=== PATIENT | male | born 1965 | race Caucasian/White ===

== ENCOUNTER 2018-09-01 08:04 | Inpatient (IN) ==
--- NOTE | 2018-08-20 11:55 | Anesthesiology Consultation ---
Date of Service August 20, 2018 Assessment & Plan (1) Encounter for pre-operative examination: - Egg reaction "as a child"-- skin test negative per patient* Chart Review Chart Review: Acceptable Risk for Surgery and Patient seen in Pre Admission Testing Teaching & Discussion Pre-Anesthesia Teaching/Discussion Notes: Instructed NPO after midnight before surgery,except medications with 15 cc of water. Medication instructions provided according to the PAT guidelines. History Surgery Operation Date: 09/01/18 10:05 Proposed Procedures p L5-S1 Decompression and Fusion - Sawyer Heranndez DO Height/Weight Height: 5 ft 10 in Weight: 95.8 kg Allergies Allergy/AdvReac Type Severity Reaction Status Date / Time duloxetine [From Cymbalta] Allergy Intermediate THROAT Verified 08/10/18 13:38 CONSTRICTION pregabalin [From Lyrica] Allergy Intermediate THROAT Verified 08/10/18 13:38 CONSTRICTION sumatriptan [From Imitrex] Allergy Intermediate THROAT Verified 08/10/18 13:38 CONSTRICTION walnut Allergy Intermediate THROAT Verified 08/10/18 13:40 FEELS FUZZY pistachio nut Allergy Mild THROAT Verified 08/10/18 13:40 FEELS FUZZY primidone Allergy Mild VERTIGO Verified 08/10/18 13:38 egg Allergy Unknown SKIN TEST Verified 08/20/18 11:56 NEGATIVE ON MOST RECENT TESTING PER PATIENT gabapentin AdvReac Intermediate Seizure Verified 08/10/18 13:52 Medications Home Medications Medication Instructions Recorded Confirmed Last Taken aspirin 325 mg PO QAM 08/10/18 08/10/18 Unknown atorvastatin 10 mg PO PM 08/10/18 08/10/18 Unknown loratadine [Claritin] 10 mg PO QPM 08/10/18 08/10/18 Unknown propranolol 10 mg PO BID 08/10/18 08/10/18 Unknown Past Medical History Medical History Fibromyalgia History of seizure X2 (2010, 2011)- ?MEDICATION INDUCED (?GABAPENTIN)- NO ISSUES SINCE GABAPENTIN DISCONTINUATION History of stroke 2011= NO RESIDUAL EFFECTS Hyperlipidemia Hypertension Migraine Obesity Spinal stenosis Past Surgical History Surgical History History of carpal tunnel release B/L Hx of vasectomy Past Anesthesia History No Hx of Anesthesia Complications and No Family Hx of Anesthesia Complications History of PONV No Motion Sickness Screening History of Motion Sickness: Yes (RARE) Social History Smoking Status: Never smoker Do You Dip or Chew Tobacco: No Hx Alcohol Use: Yes Alcohol type: beer alcohol intake frequency: a few times a month Hx Substance Use: No Exercise / Class Metabolic Activity II 4-5 Yardwork/Stairs/Walk up cross junction Review of Systems Patient reports LBP with B/L LE neuropathy. Patient denies chest pain, shortness of breath, dyspnea on exertion, cough, wheezing, palpitations. Physical Exam Vital Signs VITALS BP 115/79 P 89 TEMP 97.7 SP02 93%RA RESP 18 PHYSICAL Full neck and c-spine range of motion. Full TMJ range of motion. TMD 3 finger breaths Mallampati Score 2 Dentition: intact, crown on molar Lungs: clear throughout to auscultation Cardiac: regular rate and rhythm, no murmurs noted Spine: normal Carotid arteries: negative bruit Extremities: no edema Trimmed burgos Testing Electrocardiogram Date: 08/20/18 Findings: + NSR @ (83) Chest X-Ray Date: 05/21/18 Findings: + NAD Laboratory Results 08/20/18 11:53 08/20/18 11:53 Blood Type A Positive 08/20/18 11:53 Antibody Screen NEGATIVE 08/20/18 11:53 PT 10.1 Seconds (9.0-12.0) 08/20/18 11:53 INR 1.0 (0.9-1.1) 08/20/18 11:53 APTT 25.4 Seconds (21.0-31.0) 08/20/18 11:53 Urine Color Yellow 08/20/18 11:53 Urine Appearance Clear (Clear) 08/20/18 11:53 Urine pH 5.0 (4.5-7.5) 08/20/18 11:53 Ur Specific [place] 1.013 (1.000-1.030) 08/20/18 11:53 Urine Protein Negative (Negative) 08/20/18 11:53 Urine Glucose (UA) Negative (Negative) 08/20/18 11:53 Urine Ketones 1+ (Negative) H 08/20/18 11:53 Urine Nitrite Negative (Negative) 08/20/18 11:53 Ur Leukocyte Esterase Negative (Negative) 08/20/18 11:53
--- NOTE | 2018-08-20 12:06 | PAT Medication Instructions ---
Medication Instructions Date of Service August 20, 2018 Home Medications aspirin 325 mg PO QAM atorvastatin 10 mg PO PM loratadine [Claritin] 10 mg PO QPM propranolol 10 mg PO BID ASK your prescriber and surgeon aspirin 325 mg PO QAM Take morning of surgery With a small sip of water, OTHERWISE NOTHING TO EAT OR DRINK AFTER MIDNIGHT: propranolol 10 mg PO BID Take evening before surgery atorvastatin 10 mg PO PM loratadine [Claritin] 10 mg PO QPM propranolol 10 mg PO BID Other Notes If you have any questions please call us at [phone] or [phone] or [phone] or [phone]
[2018-08-20 12:42] LABS: Appearance Urine Clear (Clear); Basophils # (auto) 0.03 K/uL (0-0.2); Basophils % (auto) 0.6 %; Bilirubin Urine Negative (Negative); Blood Urine Negative (Negative); Color Urine Yellow; Eosinophils # (auto) 0.14 K/uL (0-0.5); Eosinophils % (auto) 2.8 %; Glucose Urine UA Negative (Negative); Hematocrit (blood only) 41.4 % (42-52); Hemoglobin 15.2 g/dL (14.0-18.0); Immature Granulocytes # (auto) 0.02 K/uL (0.00-0.02); Immature Granulocytes % (auto) 0.4 %; Ketones Urine 1+ (Negative); Leukocyte Esterase Urine Negative (Negative); Lymphocytes # (auto) 2.05 K/uL (1.2-3.4); Lymphocytes % (auto) 40.5 %; Mean Corpuscular Hgb Conc 36.7 g/dL (32-36); Mean Corpuscular Volume 89.2 fL (80-100); Mean Platelet Volume 9.7 fL (7.4-10.4); Monocytes # (auto) 0.36 K/uL (0.11-0.59); Monocytes % (auto) 7.1 %; Neutrophils # (auto) 2.46 K/uL (1.4-6.5); Neutrophils % (auto) 48.6 %; Nitrite Urine Negative (Negative); Platelet Count 251 K/uL (130-400); Protein Urine Negative (Negative); RDW Coefficient of Variation 13.1 % (11.5-14.5); RDW Standard Deviation 42.2 fL (36.4-46.3); Red Blood Count 4.64 M/uL (4.7-6.1); Specific Gravity Urine 1.013 (1.000-1.030); Urobilinogen Urine Negative (Negative); White Blood Count 5.06 K/uL (4.8-10.8)
[2018-08-20 12:50] LABS: BUN Creatinine Ratio 14.3 (10-20); Creatinine Clr Calc Pharmacy 92.3 ml/min; Est GFR (African American) 92.2; Est GFR (Non-African American) 79.5; Potassium 4.2 mmol/L (3.5-5.1)
[2018-08-20 12:52] LABS: Partial Thromboplastin Ratio 0.9; Partial Thromboplastin Time 25.4 Seconds (21.0-31.0); Prothrombin Time 10.1 Seconds (9.0-12.0)
[~2018-09-01 08:04] MED LIST: ACETAMINOPHEN 500 MG TAB PO SCH; CEFAZOLIN 2000MG 2,000 MG/15 ML SYR IV SCH; CeleBREX 200 MG CAP PO SCH; GABAPENTIN 300 MG x 2 PO SCH; LR 15ML/HR IV SCH; ROPIVACAINE 0.5% HCL/PF 150 MG, BUPIVACAINE 0.5% MPF 30 ML, EPINEPHrine 30MG/30ML (OR U... INFIL SCH
[2018-09-01] MEDS ORDERED: LABETALOL HCL IV 5 MG/ML 20ML IV PRN (09:38)
[2018-09-01] MEDS ORDERED: ONDANSETRON INJ 2 MG/ML 2 ML VIAL IV PRN ×2 (09:38→13:51)
[2018-09-01] MEDS ORDERED: HYDROmorphone INJ 1 MG/ML SYRINGE IV PRN (09:38)
[2018-09-01] MEDS ORDERED: ATROPINE SULFATE 0.1 MG/ML 10ML SYR IV PRN (09:38)
--- NOTE | 2018-09-01 10:26 | History & Physical Bridge Note ---
Date of Service September 01, 2018 History & Physical Bridge Note I have examined the patient, reviewed the History & Physical and in the interval since the performance of the History & Physical I have noted the following changes of clinical significance: no changes noted
--- NOTE | 2018-09-01 10:27 | History & Physical Report ---
Date of Service September 01, 2018 Assessment & Plan (1) Spinal stenosis, lumbar region with neurogenic claudication: L5-S1 decompression and fusion Present on Admission?: Yes History of Present Illness Chief Complaint: Back and bilateral leg pain Primary Care Provider: Irena Beck This is a 53-year-old male who presents with chronic back and bilateral leg pain. After failing extensive course of nonoperative care is here for surgical intervention. Allergies Allergy/AdvReac Type Severity Reaction Status Date / Time duloxetine [From Cymbalta] Allergy Intermediate THROAT Verified 08/10/18 13:38 CONSTRICTION pregabalin [From Lyrica] Allergy Intermediate THROAT Verified 08/10/18 13:38 CONSTRICTION sumatriptan [From Imitrex] Allergy Intermediate THROAT Verified 08/10/18 13:38 CONSTRICTION walnut Allergy Intermediate THROAT Verified 08/10/18 13:40 FEELS FUZZY pistachio nut Allergy Mild THROAT Verified 08/10/18 13:40 FEELS FUZZY primidone Allergy Mild VERTIGO Verified 08/10/18 13:38 egg Allergy Unknown SKIN TEST Verified 09/01/18 08:29 NEGATIVE ON MOST RECENT TESTING PER PATIENT gabapentin AdvReac Intermediate Seizure Verified 08/10/18 13:52 Home Medications Home Medications Medication Instructions Recorded Confirmed Type aspirin 325 mg PO QAM 08/10/18 09/01/18 History atorvastatin 10 mg PO PM 08/10/18 09/01/18 History loratadine [Claritin] 10 mg PO QPM 08/10/18 09/01/18 History propranolol 10 mg PO BID 08/10/18 09/01/18 History Vitamin B-12 1 tab PO DAILY 09/01/18 09/01/18 History Past Med/Surg History Social History Preferred Language: Guamanian Communication Ability: Effective Beliefs That Will Affect Care: None Current Living Situation: Spouse Other Information That Helps Us Care for You: No Feels Safe at Home: Yes Safety Concerns: Feels Safe At This Time Smoking Status: Never smoker Do You Dip or Chew Tobacco: No Hx Alcohol Use: Yes Alcohol type: beer Hx Substance Use: No Physical Exam Vital Signs (Past 24 Hours): Last Vital Signs Temp 36.6 C 09/01/18 08:32 Pulse 86 09/01/18 08:32 Resp 18 09/01/18 08:32 BP 127/89 09/01/18 08:32 Pulse Ox 96 09/01/18 08:32
[2018-09-01] MEDS ORDERED: BACITRACIN INJ 50,000 UNIT VIAL ONE (10:33)
[2018-09-01] MEDS ORDERED: BUPIVACAINE/EPINEPHRINE 0.5% MPF 1:200,000 30 ML VIAL ONE (10:33)
[2018-09-01] MEDS ORDERED: ONDANSETRON INJ 2 MG/ML 2 ML VIAL ONE (10:34)
[2018-09-01] MEDS ORDERED: LIDOCAINE HCL 2% 2 ML VIAL/AMP(20MG/ML) INFIL ONE (10:34)
[2018-09-01] MEDS ORDERED: HYDROmorphone INJ 2 MG/ML SYR/VIAL ONE ×2 (10:34→11:18)
[2018-09-01] MEDS ORDERED: MIDAZOLAM HCL 1 MG/ML 2ML VIAL ONE (10:34)
[2018-09-01] MEDS ORDERED: PROPOFOL IV EMULSION 10 MG/ML 20 ML VIAL IV ONE (10:34)
[2018-09-01] MEDS ORDERED: ROCURONIUM BROMIDE 10 MG/ML 5 ML VIAL ONE (10:34)
[2018-09-01] MEDS ORDERED: DEXAMETHASONE SOD INJ 4 MG/ML VIAL ONE ×2 (10:34→11:10)
[2018-09-01] MEDS ORDERED: FLOSEAL HEMOSTATIC MATRIX 10ML TOP ONE (11:28)
[2018-09-01] MEDS ORDERED: NEOSTIGMINE METHYLSULFATE 1 MG/ML 10ML VIAL ONE (12:02)
[2018-09-01] MEDS ORDERED: GLYCOPYRROLATE 0.2 MG/ML VIAL ONE (12:02)
--- NOTE | 2018-09-01 12:43 | Fluoroscopy Report ---
FL lumbar spine 2-3V HISTORY: 53 years-old Male L5-S1 DECOMPRESSION AND FUSION chronic low back pain COMPARISON: None available TECHNIQUE: 4 spot fluoroscopic images of the lumbar spine were obtained utilizing 27.6 seconds of flu oroscopy time FINDINGS: Laminectomy changes with discectomy and posterior interbody brody and screw fusion at L5-S1. There is s everal millimeters anterolisthesis L5 on S1. Alignment at L4-L5 appears satisfactory on these images. IMPRESSION: Fluoroscopic assistance as above. Please see operative report for further details. The above report was generated using voice recognition software. It may contain grammatical, syntax o r spelling errors. Electronically signed by: Everett Ling M.D. 09/01/2018 12:42 PM
--- NOTE | 2018-09-01 12:48 | Operative Report ---
Post Operative Report Pre & Post Diagnosis Operation Date: 09/01/18 10:05 Pre-Op Diagnosis: Spinal stenosis, lumbar region with neurogenic claudication Post-Op Diagnosis: Spinal stenosis, lumbar region with neurogenic claudication Procedure Operation Date: 09/01/18 10:05 Actual Procedures #1 lumbar decompression bilateral medial facetectomies foraminotomies L4-5 L5- S1. #2 posterior spinal fusion L5-S1 per #3 placement posterior instrumentation L5-S1 per #4 interbody fusion L5-S1 per #5 placement of titanium 10 x 26 mm cage L5-S1 per #6 placement of local autograft in the posterior lateral gutters per #7 placement Feese collagen sponge, master graft the posterior gutters ostial amp and interbody space. Surgeon Sawyer Hernandez DO Retail Link Analyst None Estimated Blood Loss 250 Findings Consistent with Post-Op Diagnosis Specimens None Indications This is a 53-year-old male who presents with grade 1+ spondylolisthesis L5-S1. After failing extensive course of nonoperative care he is here for surgical intervention. Description of Procedure Patient was met with preoperatively case discussed all questions addressed. After informed consent obtained patient was taken to the operative suite underwent intubation placed in prone position on the Wade table on top the Rodrigo frame. All bony prominences well-padded eyes inspected to ensure no external pressure placed upon the peer at this point the lumbar spine was prepped and draped in normal sterile fashion. Sharp dissection with the assistance of Bovie cautery was performed down to and exposing the lamina and transverse processes of L5 and sacral ala bilaterally. From a caudal cephalad fashion complete laminectomy of L5 was performed partial laminectomy of L4 was performed and bilateral medial facetectomies and 4551 including foraminotomies to address severe spinal stenosis and neural compression performed. Pedicle screws were placed in L4 and S1 bilaterally with assistance of fluoroscopy and process brody placed by way of a transforaminal approach on the right complete discectomy was performed in plate coated to subcortical bleeding bone and a 10 x 26 mm titanium cage filled with osteo-amp bone graft tapped in position. Rods were then locked in final position bilaterally. Transverse processes of L5 and sacral ala bur to subcortical bleeding bone. Infuse collagen sponge mass graft local autograft placed in the posterior gutters. 15 round MARIE drain inserted. Incision was then closed with 1 Vicryl in the fascia 2-0 Vicryl subcutaneous and 4-0 Monocryl for final skin closure. Steri-Strip sterile dressings placed. Patient will continue to PACU in a stable condition. I attest to the content of the Intraoperative Record and any orders documented therein. Any exceptions are noted below.
[2018-09-01] MEDS ORDERED: TRAMADOL HCL 50 MG TABLET PO PRN (13:51)
[2018-09-01] MEDS ORDERED: HYDROmorphone INJ 0.5 MG/0.5 ML SYR IV PRN (13:51)
[2018-09-01] MEDS ORDERED: ACETAMINOPHEN 1,000 MG/100 ML VIAL IV PRN (13:51)
[2018-09-01] MEDS ORDERED: PROMETHAZINE HCL 12.5 MG in SODIUM CHLORIDE 0.9% 50 ML IV PRN (13:51)
[2018-09-01] MEDS ORDERED: OXYCODONE HCL IR 5 MG TAB (IMMEDIATE RELEASE) PO PRN (13:51)
[2018-09-01] MEDS ORDERED: LORazepam 0.5 MG TAB PO PRN (13:51)
[2018-09-01] MEDS ORDERED: MAGNESIUM HYDROXIDE SUSP 30 ML UDC PO PRN (13:51)
[2018-09-01] MEDS ORDERED: BISACODYL 10 MG SUPP PR PRN (13:51)
[2018-09-01] MEDS ORDERED: SOD PHOSPHATE/SOD BIPHOSPHATE ENEMA 132 ML BTL PR PRN (13:51)
[2018-09-01] MEDS ORDERED: ALUMINUM/MAGNESIUM SUSP 30 ML UDC PO PRN (13:51)
[2018-09-01] MEDS ORDERED: METOCLOPRAMIDE HCL INJ 5 MG/ML 2 ML VIAL IV PRN (13:51)
[2018-09-01] MEDS ORDERED: ACETAMINOPHEN 500 MG TAB PO PRN (13:51)
[2018-09-01] MEDS ORDERED: ONDANSETRON 4 MG TAB PO PRN (13:51)
[2018-09-01] MEDS ORDERED: FAMOTIDINE 20 MG TAB PO PRN (13:51)
[2018-09-01] MEDS ORDERED: DO NOT ADMINISTER PNEUMOCOCCAL VACCINE PRN (13:51)
[2018-09-01] MEDS ORDERED: LORazepam 0.5 MG/1 ML VIAL IV PRN (13:51)
[2018-09-01] MEDS ORDERED: DO NOT ADMINISTER FLU VACCINE PRN (13:51)
--- NOTE | 2018-09-01 14:21 | Anesthesiology Progress Note ---
Date of Service September 01, 2018 Anesthesia Post Procedure Vital Signs Vital Signs: Temp Pulse Pulse Resp BP BP Pulse Ox 09/01/18 13:55 36.6 C 84 18 123/75 98 09/01/18 13:45 76 20 100/64 96 09/01/18 13:40 84 15 105/69 96 09/01/18 13:35 85 20 119/77 97 09/01/18 13:30 90 17 117/75 97 09/01/18 13:28 36.6 C 86 20 117/75 97 09/01/18 13:25 74 12 97 09/01/18 13:20 79 19 114/73 96 09/01/18 13:15 88 18 121/70 95 09/01/18 13:10 86 17 99/72 L 91 09/01/18 13:06 93 H 11 L 105/67 91 09/01/18 13:05 90 14 91 09/01/18 13:02 88 14 97 09/01/18 13:00 88 13 115/73 97 09/01/18 12:59 36.1 C L 82 14 120/70 97 09/01/18 12:58 97 09/01/18 08:32 36.6 C 86 18 127/89 96 Pain Intensity Bilateral Leg: Pain Intensity: 0 Notes Mental Status: alert / awake / arousable Patient Amnestic to Procedure: Yes Nausea / Vomiting: adequately controlled Pain: adequately controlled Airway Patency, RR, SpO2: stable & adequate BP & HR: stable & adequate Hydration State: stable & adequate Anesthetic Complications: no major complications apparent
[2018-09-01] MEDS: LACTATED RINGER'S 1,000 ML IV SCH ×2 (14:32→21:24)
[2018-09-01] MEDS: KETOROLAC 30 MG/ML VIAL IV SCH ×2 (15:27→21:27)
[2018-09-01] MEDS: CEFAZOLIN 2000MG 2,000 MG/15 ML SYR IV SCH (18:18)
[2018-09-01] MEDS: ATORVASTATIN 10 MG TAB PO SCH (20:49)
[2018-09-01] MEDS: PROPRANOLOL HCL 10 MG TAB PO SCH (20:49)
[2018-09-01] MEDS: LORATADINE 10 MG TAB PO SCH (20:49)
[2018-09-01] MEDS: DOCUSATE SODIUM/SENNA 50/8.6MG TAB PO SCH (20:50)
[2018-09-02] MEDS: CEFAZOLIN 2000MG 2,000 MG/15 ML SYR IV SCH (01:30)
[2018-09-02] MEDS: KETOROLAC 30 MG/ML VIAL IV SCH ×2 (04:03→09:36)
[2018-09-02] MEDS: LACTATED RINGER'S 1,000 ML IV SCH (04:08)
[2018-09-02] MEDS: POLYETHYLENE (MIRALAX) 17 GM PACK PO SCH ×3 (05:43→18:08)
[2018-09-02 06:10] LABS: Basophils # (auto) 0.01 K/uL (0-0.2); Basophils % (auto) 0.1 %; Hematocrit (blood only) 35.1 % (42-52); Hemoglobin 12.7 g/dL (14.0-18.0); Immature Granulocytes # (auto) 0.01 K/uL (0.00-0.02); Immature Granulocytes % (auto) 0.1 %; Lymphocytes # (auto) 0.84 K/uL (1.2-3.4); Lymphocytes % (auto) 8.5 %; Mean Corpuscular Hgb Conc 36.2 g/dL (32-36); Mean Corpuscular Volume 88.2 fL (80-100); Mean Platelet Volume 9.5 fL (7.4-10.4); Monocytes # (auto) 0.62 K/uL (0.11-0.59); Monocytes % (auto) 6.3 %; Neutrophils # (auto) 8.41 K/uL (1.4-6.5); Platelet Count 204 K/uL (130-400); RDW Coefficient of Variation 13.2 % (11.5-14.5); RDW Standard Deviation 42.8 fL (36.4-46.3); Red Blood Count 3.98 M/uL (4.7-6.1); White Blood Count 9.89 K/uL (4.8-10.8)
[2018-09-02 06:45] LABS: BUN Creatinine Ratio 11.8 (10-20); Calcium 8.6 mg/dl (8.5-10.1); Creatinine Clr Calc Pharmacy 96.2 ml/min; Est GFR (African American) 97.8; Est GFR (Non-African American) 84.4; Potassium 3.9 mmol/L (3.5-5.1)
--- NOTE | 2018-09-02 07:55 | Anesthesiology Progress Note ---
Date of Service September 02, 2018 Anesthesia Post Procedure Vital Signs Vital Signs: Temp Pulse Pulse Resp BP BP Pulse Ox 09/02/18 06:53 37.2 C 101 H 18 131/77 96 09/02/18 03:50 36.6 C 91 H 16 115/67 98 09/01/18 22:58 36.5 C 96 H 15 116/70 97 09/01/18 19:09 36.5 C 84 18 125/85 97 09/01/18 16:55 35.8 C L 76 18 101/68 93 09/01/18 15:55 35.8 C L 89 18 105/72 93 09/01/18 15:21 35.9 C L 73 18 113/74 96 09/01/18 14:21 72 18 107/72 96 09/01/18 13:55 36.6 C 84 18 123/75 98 09/01/18 13:45 76 20 100/64 96 09/01/18 13:40 84 15 105/69 96 09/01/18 13:35 85 20 119/77 97 09/01/18 13:30 90 17 117/75 97 09/01/18 13:28 36.6 C 86 20 117/75 97 09/01/18 13:25 74 12 97 09/01/18 13:20 79 19 114/73 96 09/01/18 13:15 88 18 121/70 95 09/01/18 13:10 86 17 99/72 L 91 09/01/18 13:06 93 H 11 L 105/67 91 09/01/18 13:05 90 14 91 09/01/18 13:02 88 14 97 09/01/18 13:00 88 13 115/73 97 09/01/18 12:59 36.1 C L 82 14 120/70 97 09/01/18 12:58 97 09/01/18 08:32 36.6 C 86 18 127/89 96 Pain Intensity Bilateral Leg: Pain Intensity: 2 Back: Pain Intensity: 2 Notes Mental Status: alert / awake / arousable and participated in evaluation Nausea / Vomiting: adequately controlled Pain: adequately controlled Airway Patency, RR, SpO2: stable & adequate BP & HR: stable & adequate Hydration State: stable & adequate
[2018-09-02] MEDS: PROPRANOLOL HCL 10 MG TAB PO SCH ×2 (08:38→20:39)
[2018-09-02] MEDS: ASPIRIN 325 MG ECTAB PO SCH (08:38)
[2018-09-02] MEDS ORDERED: VITAMIN B12 PO SCH (09:00)
--- NOTE | 2018-09-02 11:48 | Orthopedic Progress Note ---
Date of Service September 02, 2018 Assessment & Plan (1) Spinal stenosis, lumbar region with neurogenic claudication: This time we will continue physical therapy monitor his MARIE output anticipate discharge home the next day or so. Present on Admission?: Yes Subjective Patient's back pain is well controlled. Leg symptoms markedly improved. Physical Exam Physical Exam: On exam he is ambulating well. Is good strength testing. Appears comfortable. Results & Data Vital Signs (Past 12 Hours) Vital Signs Temp Pulse Resp BP Pulse Ox 09/02/18 10:47 36.9 C 94 H 18 129/80 96 09/02/18 06:53 37.2 C 101 H 18 131/77 96 09/02/18 03:50 36.6 C 91 H 16 115/67 98
[2018-09-02] MEDS: VITAMIN B COMPLEX PO SCH (15:37)
[2018-09-02] MEDS: DOCUSATE SODIUM/SENNA 50/8.6MG TAB PO SCH (20:38)
[2018-09-02] MEDS: ATORVASTATIN 10 MG TAB PO SCH (20:38)
[2018-09-02] MEDS: LORATADINE 10 MG TAB PO SCH (20:38)
[2018-09-03] MEDS: POLYETHYLENE (MIRALAX) 17 GM PACK PO SCH ×2 (00:05→05:51)
[2018-09-03] MEDS: ASPIRIN 325 MG ECTAB PO SCH (08:17)
[2018-09-03] MEDS: VITAMIN B COMPLEX PO SCH (08:18)
[2018-09-03] MEDS: PROPRANOLOL HCL 10 MG TAB PO SCH (08:18)
[2018-09-03] MEDS ORDERED: Nursing to Pharmacy Communication ONE (10:40)
--- NOTE | 2018-09-03 15:09 | Discharge Summary ---
Date of Service September 03, 2018 Admission HPI Per Admitting Provider This is a 53-year-old male who presents with chronic back and bilateral leg pain. After failing extensive course of nonoperative care is here for surgical intervention. Principal Diagnosis Lumbar spinal stenosis with spondylolisthesis and neurogenic claudication Discharge Data Allergies Allergy/AdvReac Type Severity Reaction Status Date / Time duloxetine [From Cymbalta] Allergy Intermediate THROAT Verified 08/10/18 13:38 CONSTRICTION pregabalin [From Lyrica] Allergy Intermediate THROAT Verified 08/10/18 13:38 CONSTRICTION sumatriptan [From Imitrex] Allergy Intermediate THROAT Verified 08/10/18 13:38 CONSTRICTION walnut Allergy Intermediate THROAT Verified 08/10/18 13:40 FEELS FUZZY pistachio nut Allergy Mild THROAT Verified 08/10/18 13:40 FEELS FUZZY primidone Allergy Mild VERTIGO Verified 08/10/18 13:38 egg Allergy Unknown SKIN TEST Verified 09/01/18 08:29 NEGATIVE ON MOST RECENT TESTING PER PATIENT gabapentin AdvReac Intermediate Seizure Verified 08/10/18 13:52 Consultations 09/01/18 13:51 Consult Case Management - Discharge Planning Routine Procedures Performed Operation Date: 09/01/18 10:05 Actual Procedures p L5-S1 Decompression and Fusion, L5-S1 Interbody Fusion; Application of OsteoAMP, and Bone Morphagenetic protein(Not Applicable) - Sawyer Hernandez DO Ordered Studies 09/01/18 10:05 FL fluoroscopy <1hr Routine FL lumbar spine 2-3V Routine Hospital Course (1) Spinal stenosis, lumbar region with neurogenic claudication: Patient underwent lumbar decompression and fusion tolerated this well was taken to orthopedic for postoperative. Postop day 1 he is up and ambulating nicely. Progressive postop day #2. MARIE drain decreasing probably. Subsequent discharge home. Discharge orders and instructions found in the chart for further review. Total Time Total Time Spent Total Time Spent (In Minutes): 20 minutes Discharge Plan Discharge Items Patient Disposition: Home - Self-Care Reason For Visit: Spondylolisthesis, Lumbosacral Region Discharge Diagnosis: Lumbar spinal stenosis with spondylolisthesis Discharge Goals: Decrease discomfort Activity: Per 'Additional Instructions' section Non-emergency contact: Primary Care Provider Call non-emergency contact if: you have any medication questions Follow-up/Referrals: Irena Beck C.R.N.P. [Primary Care Provider] - Diet: Regular Addtl Provider Instructions: ACTIVITY RECOMMENDATIONS: SELF CARE INSTRUCTIONS AFTER THORACIC/LUMBAR FUSIONS 1. You may walk to your tolerance. It is good exercise for your legs and back. Expect some back and intermittent leg aches and pains. 2. You may perform "counter-top" level activities (make a sandwich, susanna with a project, etc.). 3. No bending or lifting of more than 10 pounds or back twisting of any nature (roll like a log when turning in bed). 4. You may ride in a car for 20-30 minutes at a time. No driving until after your first visit with your doctor. 5. Frequent changes of position and restricting sitting to 30 minutes at a time will help limit the amount of back spasms and stiffness you may experience. 6. You may discontinue the use of ambulatory aids (cane, crutches, etc.) once your strength and confidence allow. 7. You may tin whiz machine operator the shower and let water strike your incision when you arrive home at least once daily. Do not take a tub bath, sit in a hot tub or go into a swimming pool until after your first recheck in the office. SPECIAL CARE INSTRUCTIONS: VERY IMPORTANT TO READ AND REVIEW A. Your surgical incision has been closed with a cosmetic suture under the skin that will dissolve in about 6 weeks. In 14 days, you can use a pair of clean scissors and cut the suture that is left outside of the skin at the ends of your incision. 1. The small skin tapes can be removed 7 days after surgery if they have not fallen off by that point. 2. You may keep the wound open to air as much as possible to promote healing after post-op day number 5 unless told otherwise by your doctor. 3. If you think the wound looks like it is becoming infected (redness or worsening drainage) and/or you are experiencing fever, chill or worsening back pain and muscle spasms, contact the office so that we may evaluate you as soon as possible. B. Complications are uncommon, but please contact us if you have any signs or symptoms of: 1. wound infection (fever higher than 102.5 degrees F, redness, separation of wound, drainage, or increasing pain from the incision) 2. blood clots in legs (pain, swelling, redness and warmth in legs) 3. urinary tract infection (fever higher than 102.5 degrees F, burning upon urination or increased frequency of urination) 4. nerve problems (inability to walk on your toes or heels, numbness, loss of bowel or bladder control) 5. any other symptoms that concern you C. Please call the office at if you have any concerns or questions about your operation or recovery. D. No smoking! Smoking drastically decreases the chance of a solid fusion. E. Do not take any anti-inflammatory medications (Indocin, Advil, Motrin, Aspirin, Naprosyn, etc.) as these may inhibit the chance of a solid fusion. Ty lenol is okay to take for pain. MANAGING PAIN AFTER SPINAL SURGERY 1. Narcotic medication is intended for short-term use and will be provided for surgical pain. Surgical pain usually lasts for a period of 4-6 weeks. Narcotic medication includes Percocet, Vicodin, Darvocet, Tylenol #3 or Lortab. 2. Longer-term pain is more appropriately treated with non-narcotic medication such as Tylenol ES. 3. Muscle spasm is not appropriately treated with narcotics. Muscle relaxers such as Soma, Flexeril or Skelaxin can be used along with Tylenol ES. 4. Remember that we all live with some "aches and pains". This is not unusual or uncommon after an injury or as we get older. a. Back pain is expected and may include muscle spasms for 4 to 6 weeks after surgery. The pain should gradually improve. If the pain worsens for no apparent reason, please contact the office. b. Intermittent leg pain may also be experienced and should not be concerned about unless it worsens for no apparent reason. If so, please contact the office. 5. We will provide appropriate medication within the normal guidelines of their prescribed use. We will also be very cautious and aware of potential abuse and extended duration of patients' medication needs. a. Pain medications are for your comfort and to assist with sleep and rest so that the tissue can heal. They are not provided in order to return to normal activity and should not be used through the day. To do so or worsening pain at night can result from ongoing tissue damage and development of tolerance to the prescribed medicine. 6. Please allow 2-3 days to process refills. Prescriptions will not be mailed but must be picked up at the office. FOLLOW UP VISIT: Keep your scheduled follow-up appointment. Any questions, please call the office at . Prescriptions: New tramadol 50 mg Tablet 50 mg PO Q4H PRN (Reason: Pain, Moderate) Qty: 30 RF: 0 oxycodone 5 mg Tablet 5 mg PO Q4H PRN (Reason: Pain, Severe) Qty: 30 RF: 0 Continued atorvastatin 10 mg Tablet 10 mg PO PM RF: 0 aspirin 325 mg Tablet 325 mg PO QAM RF: 0 propranolol 10 mg Tablet 10 mg PO BID RF: 0 loratadine [Claritin] 10 mg Tablet 10 mg PO QPM RF: 0 Vitamin B-12 1 tab PO DAILY RF: 0 Stand-Alone Forms: [facility] Patient Handouts: Surgery Back Going Home Discharge Orders: Discharge Order (Routine); Ordered 09/03/18 Ordered By: Sawyer Hernandez Admission Data Admit Date/Time: 09/01/18 12:53 Attending Provider: Sawyer Hernandez Admit Provider: Sawyer Hernandez Primary Care Provider: Irena Beck Service: Surgical Services Other Interventions: Discharge Summary Assessment (RN) Last Done: 09/03/18 11:41 DC Date/Time DO NOT enter until pt leaves facility: 09/03/18 13:05
--- OUTSIDE RECORDS SUMMARY | 2018-09-06 20:06 | External Medical Summary | Continuity of Care Document ---
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 Bethanie Gamboa Start: 02-Sep-2017 Quantity: 1 5 ML Bottle Refills: 11 Triamcinolone Acetonide 55 MCG/ACT Nasal Aerosol; Instill 1-2 squirts in each nostril daily Bethanie Gamboa Start: 02-Sep-2017 Quantity: 1 16.5 GM Bottle Refills: 11 Levocetirizine Dihydrochloride 5 MG Oral Tablet; Take one (1) tablet(s) daily as neededfor allergy. Bethanie Gamboa Start: 02-Sep-2017 Quantity: 30 Refills: 11 Montelukast Sodium 10 MG Oral Tablet; TAKE 1 TABLET EV TIFFANIE DAY Bethanie Gamboa Start: 02-Sep-2017 Quantity: 30 Refills: 11 Propranolol HCl - 20 MG Oral Tablet; TAKE 1 TABLET DAILY , M.DZoe Refills: 0 Aspirin 325 MG Oral Tablet; TAKE 1 TABLET DAILY. , Suad.DZoe Refills: 0 oxyCODONE HCl - 5 MG Oral Tablet; TAKE TABLET PRN , M.D. Refills: 0 Atorvastatin Calcium 10 MG Oral Tablet; TAKE 1 TABLET DAILY , M.D. 90 Tablet Bottle Refills: 0 Procedures History of Neuroplasty Decompression Median Nerve At Carpal Status: Completed Tunnel History of Surgery Vas Deferens Vasectomy Status: Completed Immunizations Immunizations not documented Family History Unknown Family Member Family history of asthma (V17.5) (Z82.5) Status: Active Comments: Family History Family history of allergic rhinitis (V19.6) Status: Active Comments: Family History (Z83.6) Family history of arthritis (V17.7) (Z82.61) Status: Active Comments: Family History Social History - Smoking Status Never smoker Plan of Treatment Planned Observations Planned Goals not documented Results No Known Results Results not documented Encounters Appointment; Wali Gamboa M.D. 02-Sep-2017 10:00 Encounter Diagnosis: Problem not documented Appointment; Pulmonary, Funct Testing 02-Sep-2017 9:45 Encounter Diagnosis: Problem not documented
== END 2018-09-03 13:05 | disposition home or self-care (01) | DRG 455 ==
LOC: ASU 08:04 → 3E 12:53

== ENCOUNTER 2019-08-09 07:45 | Inpatient (IN) ==
--- NOTE | 2019-07-22 13:02 | PAT Medication Instructions ---
Medication Instructions Date of Service July 22, 2019 Home Medications aspirin 325 mg PO QAM atorvastatin 10 mg PO PM propranolol 10 mg PO BID cholecalciferol (vitamin D3) [Vitamin D3] 2,000 unit PO DAILY coenzyme Q10 [CoQ-10] 200 mg PO DAILY cyanocobalamin (vitamin B-12) [Vitamin B-12] 500 mcg PO DAILY famotidine [Pepcid] 20 mg PO UD PRN levocetirizine [Xyzal] 5 mg PO QPM magnesium 420 mg PO DAILY ASK your surgeon for instructions aspirin 325 mg PO QAM STOP taking 2 weeks before surgery coenzyme Q10 [CoQ-10] 200 mg PO DAILY DO NOT take the morning of surgery cholecalciferol (vitamin D3) [Vitamin D3] 2,000 unit PO DAILY cyanocobalamin (vitamin B-12) [Vitamin B-12] 500 mcg PO DAILY magnesium 420 mg PO DAILY Take morning of surgery With a small sip of water, OTHERWISE NOTHING TO EAT OR DRINK AFTER MIDNIGHT: propranolol 10 mg PO BID famotidine [Pepcid] 20 mg PO UD PRN (if needed) Take evening before surgery atorvastatin 10 mg PO PM propranolol 10 mg PO BID famotidine [Pepcid] 20 mg PO UD PRN (if needed) levocetirizine [Xyzal] 5 mg PO QPM Other Notes If you have any questions please call us at [phone] or [phone] or [phone] or [phone]
--- NOTE | 2019-07-26 10:32 | Anesthesiology Consultation ---
Date of Service July 26, 2019 Assessment & Plan (1) Encounter for pre-operative examination: Chart Review Chart Review: Acceptable Risk for Surgery and Patient seen in Pre Admission Testing Teaching & Discussion Instructed NPO after midnight before surgery, except medications with 15 cc of water. Medication instructions provided according to the PAT guidelines. History Surgery Operation Date: 08/09/19 07:45 Proposed Procedures p C5-C7 Anterior Cervical Discectomy and Fusion, Spinal Cord Monitoring - Sawyer Hernandez, Height/Weight Height: 5 ft 10 in Weight: 99.1 kg Allergies Allergy/AdvReac Type Severity Reaction Status Date / Time duloxetine [From Cymbalta] Allergy Unknown Anaphylaxis Verified 07/26/19 15:10 pistachio nut Allergy Unknown THROAT Verified 07/19/19 10:29 FEELS FUZZY pregabalin [From Lyrica] Allergy Unknown Anaphylaxis Verified 07/26/19 15:10 primidone Allergy Unknown VERTIGO Verified 07/19/19 10:29 sumatriptan [From Imitrex] Allergy Unknown Anaphylaxis Verified 07/26/19 15:10 walnut Allergy Unknown THROAT Verified 07/19/19 10:29 FEELS FUZZY gabapentin AdvReac Unknown Seizure Verified 07/19/19 10:29 Medications Home Medications Medication Instructions Recorded Confirmed Last Taken aspirin 325 mg PO QAM 08/10/18 07/19/19 08/31/18 22:00 atorvastatin 10 mg PO PM 08/10/18 07/19/19 08/31/18 22:00 propranolol 10 mg PO BID 08/10/18 07/19/19 09/01/18 05:00 cholecalciferol (vitamin D3) 2,000 unit PO DAILY 07/19/19 07/19/19 Unknown [Vitamin D3] coenzyme Q10 [CoQ-10] 200 mg PO DAILY 07/19/19 07/19/19 Unknown cyanocobalamin (vitamin B-12) 500 mcg PO DAILY 07/19/19 07/19/19 Unknown [Vitamin B-12] famotidine [Pepcid] 20 mg PO UD PRN 07/19/19 07/19/19 Unknown levocetirizine [Xyzal] 5 mg PO QPM 07/19/19 07/19/19 Unknown magnesium 420 mg PO DAILY 07/19/19 07/19/19 Unknown Past Medical History Medical History (Updated 07/27/19 @ 08:25 by Fritz Odonnell) Acid reflux Bone spur NECK Chronic fatigue Essential tremor Fibromyalgia History of chemical exposure HX OF 1986 History of seizure x2 (2010, 2011)- Possibly medication induced (Gabapentin); pt was temporarily on antiseizure meds but these were d/c'd. History of stroke 2012, L parietal. Residual very mild R sided weakness and some word-finding difficulty. On 325mg ASA daily and statin. Hyperlipidemia Ketogenic diet Migraine Follows with neurology for this, h/o CVA. Receiving botox injections. PFO (patent foramen ovale) Small, noted on 11/2018 echo. Per cardiology, pt to continue ASA 325mg, no further workup needed at this time. Spinal stenosis Exercise / Class Metabolic Activity II 4-5 Yardwork/Stairs/Walk up hill (Denies CP or SOB with 1 FOS) Past Family History Family History Uncle Family history of diabetes mellitus Past Surgical History Surgical History History of carpal tunnel release B/L History of colonoscopy History of lumbar fusion History of neck surgery CYST REMOVAL, LEFT SIDE OF NECK Hx of vasectomy Past Anesthesia History No Hx of Anesthesia Complications and No Family Hx of Anesthesia Complications History of PONV No Hx of PONV and No Hx of Motion Sickness STOP BANG Total 4 Social History Smoking Status: Never smoker Do You Dip or Chew Tobacco: No Hx Alcohol Use: Yes Alcohol type: beer alcohol intake frequency: a few times a month Hx Substance Use: No substance use type: does not use Review of Systems Pt denies any recent chest pain, shortness of breath, palpitations, cough, fever or URI. Denies recent travel. 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 chipped Neck normal visual inspection, + limited neck extension (pain with extension but can extend if needed) and + facial hair (short goatee, pt amenable to shaving) Respiratory normal respiratory effort Auscultation: lungs clear to auscultation bilaterally Cardiovascular Rate/Rhythm: regular rate and regular rhythm Heart Sounds: no murmur Vessels: no carotid bruit Extremities: no edema Testing Laboratory Results 07/26/19 10:46 07/26/19 10:46 PT 10.1 Seconds (9.0-12.0) 07/26/19 10:46 INR 1.0 (0.9-1.1) 07/26/19 10:46 APTT 25.3 Seconds (21.0-31.0) 07/26/19 10:46 Urine Color Yellow 07/26/19 Unknown Urine Appearance Clear (Clear) 07/26/19 Unknown Urine pH 8.0 (4.5-7.5) H 07/26/19 Unknown Ur Specific [place] 1.008 (1.000-1.030) 07/26/19 Unknown Urine Protein Negative (Negative) 07/26/19 Unknown Urine Glucose (UA) Negative (Negative) 07/26/19 Unknown Urine Ketones Negative (Negative) 07/26/19 Unknown Urine Nitrite Negative (Negative) 07/26/19 Unknown Ur Leukocyte Esterase Negative (Negative) 07/26/19 Unknown Blood Type A Positive 07/26/19 10:46 Antibody Screen NEGATIVE 07/26/19 10:46 Electrocardiogram Date: 07/26/19 Findings: + NSR @ (74bpm) Chest X-Ray Date: 07/26/19 Findings: + NAD Echocardiogram Date: 12/07/18 EF: 55-59% LV cavity size and wall motion are normal. Grade 1 diastolic dysfunction of left ventricle. A small PFO with mild [id number] shunt is suspected given passage of relatively late agitated saline contrast across the interatrial septum.
--- NOTE | 2019-07-26 11:10 | XRay Report ---
XR chest Pre-admission PA/Lat CLINICAL HISTORY: pat preoperative COMPARISON STUDY: No previous studies for comparison. FINDINGS: The bones soft tissues and hemidiaphragms are normal. The cardiomediastinal silhouette is n ormal. The lungs are clear. The pulmonary vasculature is normal. IMPRESSION: Negative chest. ACT 112: Negative or not required by law. The above report was generated using voice recognition software. It may contain grammatical, syntax or spelling errors. Electronically signed by: Jaime Lane M.D. 07/26/2019 11:09 AM
[2019-07-26 12:04] LABS: Basophils # (auto) 0.02 K/uL (0-0.2); Basophils % (auto) 0.4 %; Eosinophils # (auto) 0.16 K/uL (0-0.5); Eosinophils % (auto) 3.1 %; Hematocrit (blood only) 41.7 % (42-52); Hemoglobin 14.7 g/dL (14.0-18.0); Immature Granulocytes # (auto) 0.01 K/uL (0.00-0.02); Immature Granulocytes % (auto) 0.2 %; Lymphocytes # (auto) 2.14 K/uL (1.2-3.4); Lymphocytes % (auto) 41.7 %; Mean Corpuscular Hemoglobin 31.9 pg (25-34); Mean Corpuscular Hgb Conc 35.3 g/dL (32-36); Mean Corpuscular Volume 90.5 fL (80-100); Mean Platelet Volume 9.9 fL (7.4-10.4); Monocytes # (auto) 0.41 K/uL (0.11-0.59); Neutrophils # (auto) 2.39 K/uL (1.4-6.5); Neutrophils % (auto) 46.6 %; Platelet Count 265 K/uL (130-400); RDW Coefficient of Variation 12.9 % (11.5-14.5); RDW Standard Deviation 42.1 fL (36.4-46.3); Red Blood Count 4.61 M/uL (4.7-6.1); White Blood Count 5.13 K/uL (4.8-10.8)
[2019-07-26 12:13] LABS: Partial Thromboplastin Ratio 0.9; Partial Thromboplastin Time 25.3 Seconds (21.0-31.0); Prothrombin Time 10.1 Seconds (9.0-12.0)
[2019-07-26 12:15] LABS: BUN Creatinine Ratio 11.1 (10-20); Calcium 9.1 mg/dl (8.5-10.1); Creatinine Clr Calc Pharmacy 88.5 ml/min; Est GFR (African American) 86.5; Est GFR (Non-African American) 74.6; Potassium 4.3 mmol/L (3.5-5.1)
[2019-07-26 12:22] LABS: Appearance Urine Clear (Clear); Bilirubin Urine Negative (Negative); Blood Urine Negative (Negative); Color Urine Yellow; Glucose Urine UA Negative (Negative); Ketones Urine Negative (Negative); Leukocyte Esterase Urine Negative (Negative); Nitrite Urine Negative (Negative); Protein Urine Negative (Negative); Specific Gravity Urine 1.008 (1.000-1.030); Urobilinogen Urine Negative (Negative)
--- NOTE | 2019-07-26 22:57 | Electrocardiogram Report ---
Test Reason : Blood Pressure : / mmHG Vent. Rate : 074 BPM Atrial Rate : 074 BPM P-R Int : 160 ms QRS Dur : 084 ms QT Int : 370 ms P-R-T Axes : 025 006 -07 degrees QTc Int : 410 ms Normal sinus rhythm Normal ECG When compared with ECG of 20-AUG-2018 11:59, No significant change was found Confirmed by Raman Webster ([id number]) on 07/26/2019 10:57:26 PM Referred By: Sawyer Hernandez Confirmed By:Raman Webster
[~2019-08-09 07:45] MED LIST changes: -GABAPENTIN 300 MG x 2 PO SCH; -ROPIVACAINE 0.5% HCL/PF 150 MG, BUPIVACAINE 0.5% MPF 30 ML, EPINEPHrine 30MG/30ML (OR U... INFIL SCH
[2019-08-09] MEDS ORDERED: LIDOCAINE HCL 2% 2 ML VIAL/AMP(20MG/ML) INFIL ONE (08:39)
[2019-08-09] MEDS ORDERED: DEXAMETHASONE SOD INJ 4 MG/ML VIAL ONE (08:39)
[2019-08-09] MEDS ORDERED: NEOSTIGMINE METHYLSULFATE 5 MG/5 ML SYR ONE (08:39)
[2019-08-09] MEDS ORDERED: ONDANSETRON INJ 2 MG/ML 2 ML VIAL ONE (08:39)
[2019-08-09] MEDS ORDERED: GLYCOPYRROLATE 0.2 MG/ML VIAL ONE (08:39)
[2019-08-09] MEDS ORDERED: PROPOFOL IV EMULSION 10 MG/ML 20 ML VIAL IV ONE (08:39)
[2019-08-09] MEDS ORDERED: fentaNYL citrate 100 MCG/2 ML VIAL ONE ×2 (08:40→10:32)
[2019-08-09] MEDS ORDERED: MIDAZOLAM HCL 1 MG/ML 2ML VIAL ONE (08:40)
--- NOTE | 2019-08-09 09:34 | History & Physical Bridge Note ---
Date of Service August 09, 2019 History & Physical Bridge Note I have examined the patient, reviewed the History & Physical and in the interval since the performance of the History & Physical I have noted the following changes of clinical significance: no changes noted
--- NOTE | 2019-08-09 09:38 | History & Physical Report ---
Date of Service August 09, 2019 Assessment & Plan (1) Myelopathy concurrent with and due to spinal stenosis of cervical region: C5-C7 anterior cervical discectomy and fusion Present on Admission?: Yes (2) Herniation of cervical intervertebral disc with radiculopathy: Present on Admission?: Yes History of Present Illness Chief Complaint: Bilateral arm pain and weakness Primary Care Provider: Irena Beck This is a 54-year-old male that presents with worsening bilateral arm pain numbness and weakness right greater than left. He is failed extensive course of nonoperative care and is noting a progressive nature neurologic decline. Due to his progressive nature of neurologic deficit and failed attempts at nonoperative care there proceeding with surgery to avoid any long-term neurologic sequelae and deficits. Allergies Allergy/AdvReac Type Severity Reaction Status Date / Time duloxetine [From Cymbalta] Allergy Unknown Anaphylaxis Verified 08/09/19 08:15 pistachio nut Allergy Unknown THROAT Verified 08/09/19 08:15 FEELS FUZZY pregabalin [From Lyrica] Allergy Unknown Anaphylaxis Verified 08/09/19 08:15 primidone Allergy Unknown VERTIGO Verified 08/09/19 08:15 sumatriptan [From Imitrex] Allergy Unknown Anaphylaxis Verified 08/09/19 08:15 walnut Allergy Unknown THROAT Verified 08/09/19 08:15 FEELS FUZZY gabapentin AdvReac Unknown Seizure Verified 08/09/19 08:15 eggs AdvReac Intermediate Vomiting Uncoded 08/09/19 08:15 Home Medications Home Medications Medication Instructions Recorded Confirmed Type aspirin 325 mg PO QAM 08/10/18 08/09/19 History atorvastatin 10 mg PO PM 08/10/18 08/09/19 History propranolol 10 mg PO BID 08/10/18 08/09/19 History cholecalciferol (vitamin D3) 2,000 unit PO DAILY 07/19/19 08/09/19 History [Vitamin D3] coenzyme Q10 [CoQ-10] 200 mg PO DAILY 07/19/19 08/09/19 History cyanocobalamin (vitamin B-12) 500 mcg PO DAILY 07/19/19 08/09/19 History [Vitamin B-12] famotidine [Pepcid] 20 mg PO UD PRN 07/19/19 08/09/19 History levocetirizine [Xyzal] 5 mg PO QPM 07/19/19 08/09/19 History magnesium 420 mg PO DAILY 07/19/19 08/09/19 History Past Med/Surg History Family History Uncle Family history of diabetes mellitus Social History Preferred Language: Ethiopian Communication Ability: Effective 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 Results & Data Vital Signs (Past 12 Hours) Vital Signs Temp Pulse Resp BP Pulse Ox 08/09/19 08:19 36.8 C 81 16 130/81 97
[2019-08-09] MEDS ORDERED: BACITRACIN INJ 50,000 UNIT VIAL ONE (09:42)
[2019-08-09] MEDS ORDERED: ATROPINE SULFATE 0.1 MG/ML 10ML SYR IV PRN (10:02)
[2019-08-09] MEDS ORDERED: HYDROmorphone INJ 1 MG/ML SYRINGE IV PRN ×2 (10:02→13:40)
[2019-08-09] MEDS ORDERED: ePHEDrine sulfate 50 MG/ML AMP IV PRN (10:02)
[2019-08-09] MEDS ORDERED: fentaNYL citrate 100 MCG/2 ML VIAL IV PRN (10:02)
[2019-08-09] MEDS ORDERED: ONDANSETRON INJ 2 MG/ML 2 ML VIAL IV PRN ×2 (10:02→13:40)
[2019-08-09] MEDS ORDERED: FLOSEAL HEMOSTATIC MATRIX 10ML TOP ONE (10:47)
--- NOTE | 2019-08-09 11:47 | Operative Report ---
Post Operative Report Pre & Post Diagnosis Operation Date: 08/09/19 09:55 Pre-Op Diagnosis: Herniation of Cervical Intervertebral Disc with Radiculopathy C5-C7 Post-Op Diagnosis: Herniation of Cervical Intervertebral Disc with Radiculopathy C5-C7 I identified the patient and participated in the time-out.: Yes Procedure Operation Date: 08/09/19 09:55 Actual Procedures #1 anterior cervical discectomy with bilateral foraminotomies C5-6 and C6-7. #2 anterior cervical arthrodesis C5-6 and C6-7. #3 placement of Spira 8 mm cage filled with DBM at C5-6 and C6-7. #4 application of 5 complete screws across C5-6 and C6-7. Surgeon Sawyer Hernandez, Special Events Coordinator Geraldine Angeles Estimated Blood Loss 10 Findings Consistent with Post-Op Diagnosis Specimens None Indications This is a 54-year-old male well-known to me the progress with marked decline in neurologic status involving the bilateral upper extremity secondary to cervical spinal stenosis cord compression and neuroforaminal disease secondary to disc herniation. Subsequently he is here to undergo urgent decompression and fusion. Description of Procedure Patient was met with preop the case discussed questions were addressed with number patient was taken back to op suite underwent an patient placed in supine position Wade table with head Back hogshead opener. All bony prominences well-padded eyes inspected to ensure no external pressure placed upon but this point the anterior cervical spine was prepped and draped in a sterile fashion. Sharp dissection with assistance of bipolar electrocautery was performed down to and exposing the anterior cervical spine from C5-C7. Self-retaining retractors placed. Then performed a complete discectomy of C5-6 out to the uncovertebral joints bilaterally. [place] distracting pins were utilized to assist in visualization. I removed all posterior annular fibers longitudinal ligament addressing all disc protrusion and bony spurs. Endplates were then burred to subcortical bleeding bone and an 8 mm Spira cage filled with DBM tapped in position. Then proceeded DC 6 7. Again complete discectomy performed out to the uncovertebral joints bilaterally. [place] distracting pins again utilized. Removed all posterior annular fibers longitudinal ligament bilateral foramino tomies performed. Endplates produce subcortical and bone and 8 mm Spira cage filled with DBM tapped in position. Distracting apparatus was removed all anterior osteophytes burred to a smooth cortical surface and a barreto plate and screws applied with the assistance of fluoroscopy. Incision was then copiously irrigated explored to ensure no damage to surrounding structures remaining bleeding. 10 round MARIE drain inserted. Incision was then closed with 2 Vicryl in the fascia and 4 Monocryl for final skin closure. Steri-Strips sterile dressings placed. Patient will continue PACU stable condition. Please note Geraldine Angeles was present at the entire procedure involved the patient positioning complex portions of the surgery and final skin closure. Lastly spinal cord monitoring was utilized that the procedure and no changes noted. I attest to the content of the Intraoperative Record and any orders documented therein. Any exceptions are noted below.
[2019-08-09] MEDS ORDERED: ROCURONIUM BROMIDE 10 MG/ML 5 ML VIAL ONE (12:13)
--- NOTE | 2019-08-09 12:17 | Anesthesiology Progress Note ---
Date of Service August 09, 2019 Anesthesia Post Procedure Vital Signs Vital Signs: Temp Pulse Resp BP Pulse Ox 08/09/19 08:19 36.8 C 81 16 130/81 97 Pain Intensity Posterior Neck: Pain Intensity: 5 Transfer of Care Handoff Completed per policy Notes Mental Status: alert / awake / arousable and participated in evaluation Patient Amnestic to Procedure: Yes Nausea / Vomiting: adequately controlled Pain: adequately controlled Airway Patency, RR, SpO2: stable & adequate BP & HR: stable & adequate Hydration State: stable & adequate Anesthetic Complications: no major complications apparent and Pt Satisfied with anesthetic care
--- NOTE | 2019-08-09 12:44 | Fluoroscopy Report ---
FL cervical 2-3V CLINICAL HISTORY: 54 years-old Male presenting with ACDF C5-7. TECHNIQUE: 3 fluoroscopic image(s) recorded as part of an intraoperative procedure. COMPARISON: None. FINDINGS/IMPRESSION: Anterior cervical discectomy and fusion of C5-C7. Straightening of normal cervical lordosis. Upper ce rvical spine otherwise normal. Support tubing projects over the anterior neck. Please see surgical report for further details. Fluoroscopy dosage (mGy): 3.91. Fluoroscopy time: 14.9 seconds. Number or time of high level fluoroscopy (HLF), digital spot, or digital subtraction images: 0. ACT 112: Negative or not required by law. Electronically signed by: Kevin Velásquez M.D. 08/09/2019 12:43 PM
[2019-08-09] MEDS ORDERED: RACEPINEPHRINE 2.25% NEBU SOLN 0.5 ML VIAL INH PRN (13:40)
[2019-08-09] MEDS ORDERED: SOD PHOSPHATE/SOD BIPHOSPHATE ENEMA 132 ML BTL PR PRN (13:40)
[2019-08-09] MEDS ORDERED: DO NOT ADMINISTER FLU VACCINE PRN (13:40)
[2019-08-09] MEDS ORDERED: FAMOTIDINE 20 MG TAB PO PRN ×2 (13:40)
[2019-08-09] MEDS ORDERED: ACETAMINOPHEN 500 MG TAB PO PRN (13:40)
[2019-08-09] MEDS ORDERED: LORazepam 0.5 MG TAB PO PRN (13:40)
[2019-08-09] MEDS ORDERED: ACETAMINOPHEN 1,000 MG/100 ML VIAL IV PRN (13:40)
[2019-08-09] MEDS ORDERED: DO NOT ADMINISTER PNEUMOCOCCAL VACCINE PRN (13:40)
[2019-08-09] MEDS ORDERED: PROMETHAZINE HCL 12.5 MG in SODIUM CHLORIDE 0.9% 50 ML IV PRN (13:40)
[2019-08-09] MEDS ORDERED: NALOXONE HCL 0.4 MG/1 ML VIAL/CARP IV PRN (13:40)
[2019-08-09] MEDS ORDERED: HYDROmorphone INJ 0.5 MG/0.5 ML SYR IV PRN (13:40)
[2019-08-09] MEDS ORDERED: METOCLOPRAMIDE HCL INJ 5 MG/ML 2 ML VIAL IV PRN (13:40)
[2019-08-09] MEDS ORDERED: TRAMADOL HCL 50 MG TABLET PO PRN (13:40)
[2019-08-09] MEDS ORDERED: ONDANSETRON 4 MG OD TAB PO PRN (13:40)
[2019-08-09] MEDS ORDERED: LORazepam 0.5 MG/1 ML VIAL IV PRN (13:40)
[2019-08-09] MEDS ORDERED: DEXAMETHASONE SOD PHOSPHATE 8 MG in SYRINGE 0 ML IV PRN (13:40)
[2019-08-09] MEDS ORDERED: ALUMINUM/MAGNESIUM SUSP 30 ML UDC PO PRN (13:40)
[2019-08-09] MEDS ORDERED: MAGNESIUM HYDROXIDE SUSP 30 ML UDC PO PRN (13:40)
[2019-08-09] MEDS: LACTATED RINGER'S 1,000 ML IV SCH (14:22)
[2019-08-09] MEDS: XYZAL ~ ORDER AWAITING ACTION SCH (16:57)
[2019-08-09] MEDS: [UNRECOGNIZED DRUG - REMARK] SCH ×5 (18:58→20:06)
[2019-08-09] MEDS: CEFAZOLIN 2000MG 2,000 MG/15 ML SYR IV SCH (19:05)
[2019-08-09] MEDS ORDERED: COUGH DROP (SUGAR FREE) LOZ 24 LOZ/1 BOX BUCCAL ONE (19:07)
[2019-08-09] MEDS: OXYCODONE HCL IR 5 MG TAB (IMMEDIATE RELEASE) PO PRN (19:08)
[2019-08-09] MEDS: PROPRANOLOL HCL 10 MG TAB PO SCH (20:22)
[2019-08-09] MEDS ORDERED: ATORVASTATIN 10 MG TAB PO SCH (21:00)
[2019-08-09] MEDS ORDERED: DOCUSATE SODIUM/SENNA 50/8.6MG TAB PO SCH (21:00)
[2019-08-10] MEDS: LACTATED RINGER'S 1,000 ML IV SCH (00:05)
[2019-08-10] MEDS: XYZAL ~ ORDER AWAITING ACTION SCH ×2 (00:05→08:44)
[2019-08-10] MEDS: OXYCODONE HCL IR 5 MG TAB (IMMEDIATE RELEASE) PO PRN (00:16)
[2019-08-10] MEDS: CEFAZOLIN 2000MG 2,000 MG/15 ML SYR IV SCH (02:33)
--- NOTE | 2019-08-10 07:33 | Anesthesiology Progress Note ---
Date of Service August 10, 2019 Anesthesia Post Procedure Vital Signs Vital Signs: Temp Pulse Pulse Pulse Pulse Resp BP 08/10/19 06:26 36.7 C 92 H 20 08/10/19 04:26 36.7 C 94 H 20 08/10/19 03:10 96 H 16 08/10/19 02:24 36.7 C 92 H 18 08/10/19 00:07 36.7 C 98 H 15 08/09/19 23:12 99 H 16 08/09/19 22:20 36.9 C 99 H 16 08/09/19 20:10 36.7 C 102 H 18 08/09/19 19:48 105 H 14 08/09/19 18:20 36.4 C L 105 H 16 08/09/19 16:40 36.5 C 99 H 16 08/09/19 15:28 106 H 20 08/09/19 15:20 37 C 101 H 16 08/09/19 14:18 96 H 18 08/09/19 13:50 36.5 C 80 18 08/09/19 13:46 94 H 16 08/09/19 13:05 36.3 C L 73 16 08/09/19 12:55 74 17 08/09/19 12:45 73 16 08/09/19 12:35 77 14 08/09/19 12:25 65 12 08/09/19 12:15 60 14 08/09/19 12:05 36.2 C L 71 18 08/09/19 08:19 36.8 C 81 16 130/81 BP Pulse Ox 08/10/19 06:26 131/74 96 08/10/19 04:26 122/75 96 08/10/19 03:10 92 08/10/19 02:24 126/72 95 08/10/19 00:07 129/75 94 08/09/19 23:12 93 08/09/19 22:20 137/82 95 08/09/19 20:10 147/88 H 94 08/09/19 19:48 94 08/09/19 18:20 131/83 95 08/09/19 16:40 120/78 08/09/19 15:28 95 08/09/19 15:20 133/77 94 08/09/19 14:18 151/89 H 94 08/09/19 13:50 132/85 96 08/09/19 13:46 94 08/09/19 13:05 128/73 94 08/09/19 12:55 119/71 93 08/09/19 12:45 119/75 93 08/09/19 12:35 112/72 93 08/09/19 12:25 107/71 96 08/09/19 12:15 112/79 96 08/09/19 12:05 100/66 95 08/09/19 08:19 97 Pain Intensity Posterior Neck: Pain Intensity: 2 Notes Mental Status: alert / awake / arousable and participated in evaluation Patient Amnestic to Procedure: Yes Nausea / Vomiting: adequately controlled Pain: adequately controlled Airway Patency, RR, SpO2: stable & adequate BP & HR: stable & adequate Hydration State: stable & adequate Anesthetic Complications: no major complications apparent and Pt Satisfied with anesthetic care
[2019-08-10] MEDS: PROPRANOLOL HCL 10 MG TAB PO SCH (08:45)
[2019-08-10] MEDS ORDERED: NON-FORMULARY MEDICATION (Coenzyme Q10 [Coq-10] 200 MG) PO SCH (09:00)
[2019-08-10] MEDS ORDERED: MAGNESIUM OXIDE 400 MG TAB PO SCH (09:00)
[2019-08-10] MEDS ORDERED: CYANOCOBALAMIN 500 MCG TABLET (VITAMIN B-12) PO SCH (09:00)
[2019-08-10] MEDS ORDERED: ASPIRIN 325 MG ECTAB PO SCH (09:00)
--- NOTE | 2019-08-10 11:35 | Discharge Summary ---
Date of Service August 10, 2019 Admission HPI Per Admitting Provider This is a 54-year-old male that presents with worsening bilateral arm pain numbness and weakness right greater than left. He is failed extensive course of nonoperative care and is noting a progressive nature neurologic decline. Due to his progressive nature of neurologic deficit and failed attempts at nonoperative care there proceeding with surgery to avoid any long-term neurologic sequelae and deficits. Principal Diagnosis Cervical spinal stenosis with myeloradiculopathy Discharge Data Allergies Allergy/AdvReac Type Severity Reaction Status Date / Time duloxetine [From Cymbalta] Allergy Unknown Anaphylaxis Verified 08/09/19 08:15 pistachio nut Allergy Unknown THROAT Verified 08/09/19 08:15 FEELS FUZZY pregabalin [From Lyrica] Allergy Unknown Anaphylaxis Verified 08/09/19 08:15 primidone Allergy Unknown VERTIGO Verified 08/09/19 08:15 sumatriptan [From Imitrex] Allergy Unknown Anaphylaxis Verified 08/09/19 08:15 walnut Allergy Unknown THROAT Verified 08/09/19 08:15 FEELS FUZZY egg AdvReac Intermediate Vomiting Verified 08/10/19 07:54 gabapentin AdvReac Unknown Seizure Verified 08/09/19 08:15 Procedures Performed Operation Date: 08/09/19 09:55 Actual Procedures p C5-C7 Anterior Cervical Discectomy and Fusion, Spinal Cord Monitoring(Not Applicable) - Sawyer Hernandez DO Ordered Studies 08/09/19 09:55 FL cervical 2-3V Routine FL fluoroscopy <1hr Routine Hospital Course (1) Herniation of cervical intervertebral disc with radiculopathy: Patient underwent anterior cervical discectomy fusion tolerated this well was taken to orthopedic for postoperative. Postop day 1 his arm symptoms were improved strength improved swallowing well no hoarseness. MARIE drain decreasing appropriately. Subsequently discharged home. Discharge orders instructions from the chart for further review. Total Time Total Time Spent Total Time Spent (In Minutes): 20 minutes Discharge Plan Discharge Items Patient Disposition: Home - Self-Care Reason For Visit: Spinal Stenosis, Cervical Region Discharge Diagnosis: Cervical spinal stenosis with myeloradiculopathy Activity: As commented below Non-emergency contact: Primary Care Provider Call non-emergency contact if: you have any medication questions Follow-up/Referrals: Irena Beck, C.R.N.P. [Primary Care Provider] - Diet: Regular Addtl Attending Provider Instructions: ACTIVITY RECOMMENDATIONS: SELF CARE INSTRUCTIONS AFTER CERVICAL FUSIONS 1. No smoking. Smoking drastically decreases the chance of a solid fusion. 2. No bending, lifting more than 5 pounds, or twisting (roll like a log when turning in bed). 3. You may shower 3 days after surgery. Thoroughly dry wound. Do not soak in the tub. 4. Cervical collar: Must be worn at all times including sleeping. You may remove the brace only to bath, eat and if you are sitting in a recliner. 5. Please walk as much as you can for exercise. Gradually increase the distance that you walk as your endurance increases. SPECIAL CARE INSTRUCTIONS: VERY IMPORTANT TO READ AND REVIEW A. Do not take any anti-inflammatory medications (i.e. Indocin, Advil, Aspirin, Naprosyn, Aleve, Motrin, etc.) as these may inhibit the chance of a solid fusion. Tylenol is okay to take. B. Your surgical incision has been closed with a cosmetic suture under the skin that will dissolve in about 6 weeks. In 14 days, you can use a pair of clean scissors and cut the suture that is left outside of the skin at the ends of your incision. C. Complications are uncommon, but please contact us if you have any signs or symptoms of: 1. wound infection (fever higher than 102.5 degrees F, redness, separation of wound, drainage, or increasing pain from the incision) 2. blood clots in legs (pain, swelling, redness and warmth in legs) 3. urinary tract infection (fever higher than 102.5 degrees, burning upon urination or increased frequency of urination) 4. nerve problems (inability to walk on your toes or heels, numbness, loss of bowel or bladder control) 5. any other symptoms that concern you. D. Please call the office at if you have any concerns or questions about your operation or recovery. MANAGING PAIN AFTER SPINAL SURGERY 1. Narcotic medication is intended for short-term use and will be provided for surgical pain. Surgical pain usually lasts for a period of 4-6 weeks. Narcotic medication includes Percocet, Vicodin, Darvocet, Tylenol #3 or Lortab. 2. Longer-term pain is more appropriately treated with non-narcotic medication such as Tylenol ES. 3. Muscle spasm is not appropriately treated with narcotics. Muscle relaxers such as Soma, Flexeril or Skelaxin can be used along with Tylenol ES. 4. Remember that we all live with some "aches and pains". This is not unusual or uncommon after an injury or as we get older. 5. We will provide appropriate medication within the normal guidelines of their prescribed use. We will also be very cautious and aware of potential abuse and extended duration of patients' medication needs. 6. Please allow 2-3 days to process refills. Prescriptions will not be mailed but must be picked up at the office. FOLLOW UP VISIT: Keep your scheduled follow-up appointment. Any questions, please call the office at . Pending Studies at Discharge: No Stand-Alone Forms: My [facility], Opioid Pain Management, Smoking Cessation Medications and DC Order Prescriptions: New oxycodone 5 mg tablet 5 mg PO Q6H PRN (Reason: pain, severe) Qty: 14 RF: 0 tramadol 50 mg tablet 50 mg PO Q6H PRN (Reason: pain, moderate) Qty: 14 RF: 0 Continued atorvastatin 10 mg Tablet 10 mg PO PM RF: 0 aspirin 325 mg Tablet 325 mg PO QAM RF: 0 propranolol 10 mg Tablet 10 mg PO BID RF: 0 cyanocobalamin (vitamin B-12) [Vitamin B-12] 500 mcg Tablet 500 mcg PO DAILY RF: 0 levocetirizine [Xyzal] 5 mg Tablet 5 mg PO QPM RF: 0 cholecalciferol (vitamin D3) [Vitamin D3] 25 mcg (1,000 unit) Capsule 2,000 unit PO DAILY RF: 0 magnesium 200 mg Tablet 420 mg PO DAILY RF: 0 coenzyme Q10 [CoQ-10] 100 mg Capsule 200 mg PO DAILY RF: 0 famotidine [Pepcid] 20 mg Tablet 20 mg PO UD PRN (Reason: Acid Reflux) RF: 0 Discharge Orders: Discharge Order (Routine); Ordered 08/10/19 Ordered By: Sawyer Thomas/Other Patient Handouts: DVT Prevention Admission Data Admit Date/Time: 08/09/19 12:43 Attending Provider: Sawyer Hernandez Admit Provider: Sawyer Hernandez Primary Care Provider: Irena Beck Other Interventions: Discharge Summary Assessment (RN) Last Done: 08/10/19 10:08 DC Date/Time DO NOT enter until pt leaves facility: 08/10/19 11:22
[2019-08-10] MEDS ORDERED: POLYETHYLENE (MIRALAX) 17 GM PACK PO SCH (11:50)
[2019-08-11] MEDS ORDERED: bisacodyL 10 MG SUPP PR PRN (11:50)
== END 2019-08-10 11:22 | disposition home or self-care (01) | DRG 472 ==
LOC: ASU 07:45 → 3E 12:43